=== PATIENT | male | born 1985 ===

== ENCOUNTER 2019-03-04 22:31 | Emergency (ER) | payer SELFPAY ==
[2019-03-04 23:06] LABS: Bilirubin Negative (Negative); Blood, Urine Negative (Negative); Clarity Clear (Clear); Glucose, Urine (Dipstick) Normal (Negative); Leukocyte Negative Leu/uL (Negative); Nitrite Negative (Negative); Protein, Urine (Dipstick) Negative (Neg-Trace); Urobilinogen Normal mg/dL (Less than 2)
[2019-03-04] MEDS ORDERED: Dexamethasone 10 MG/ML VIAL ONE (23:33)
[2019-03-04] MEDS ORDERED: Ketorolac Tromethamine 30 MG/ML VIAL ONE (23:34)
== END 2019-03-04 23:30 | disposition home or self-care (01) ==
LOC: ERS 22:31
DX: M54.42 Lumbago with sciatica, left side (principal)
CPT/HCPCS: 81003; 96372; 99283; J1100; J1885